=== PATIENT | male | born 1980 | race Caucasian/White ===

== ENCOUNTER 2016-09-23 21:35 | Emergency (ER) | payer OTHER, BC ==
[2016-09-23 22:00] VITALS: TEMP 97.9
[2016-09-23] MEDS ORDERED: ONDANSETRON 4 MG/2 ML VIAL IVP STA (22:28)
[2016-09-23] MEDS ORDERED: MORPHINE SULFATE 4 MG/ML SYRINGE IV STA (22:28)
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
--- NOTE | 2016-09-23 23:50 | CT ---
EXAM: CT Head Without Intravenous Contrast CLINICAL HISTORY: Reason: Pain TECHNIQUE: Axial computed tomography images of the head/brain without intravenous contrast. CTDI is 57.40 mGy and DLP is 1580.20 mGy-cm. This CT exam was performed using one or more of the following dose reduction techniques: automated exposure control, adjustment of the mA and/or kV according to patient size, and/or use of iterative reconstruction technique. COMPARISON: None. FINDINGS: Brain: Enlarged posterior fossa CSF space, measuring up to 1.2 cm, likely representing taj-cisterna magna. Differential includes epidermoid cyst versus arachnoid cyst. No hemorrhage. No significant white matter disease. No edema. Ventricles: Unremarkable. No ventriculomegaly. Bones/joints: Unremarkable. No acute fracture. Soft tissues: Unremarkable. Sinuses: Partial opacification of the bilateral ethmoid air cells, which may represent sinus disease. Mastoid air cells: Unremarkable as visualized. No mastoid effusion. IMPRESSION: 1. No acute cranial hemorrhage or acute transcortical infarct. 2. 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 Differential includes epidermoid cyst versus arachnoid cyst in the posterior fossa. 3. Partial opacification of the bilateral ethmoid air cells, which may represent sinus disease. EXAM: CT Cervical Spine Without Intravenous Contrast CLINICAL HISTORY: Reason: Pain TECHNIQUE: Axial computed tomography images of the cervical spine without intravenous contrast. CTDI is 57.40 mGy and DLP is 496.40 mGy-cm. This CT exam was performed using one or more of the following dose reduction techniques: automated exposure control, adjustment of the mA and/or kV according to patient size, and/or use of iterative reconstruction technique. COMPARISON: None. FINDINGS: Vertebrae: Chronic C2 spinous fracture noted. Discs/spinal canal/neural foramina: No acute findings. No spinal canal stenosis. Soft tissues: Unremarkable. Lung apices: Unremarkable as visualized. IMPRESSION: No acute findings. Chronic C2 spinous fracture. If there is further clinical concern, MRI of the cervical spine is recommended for further evaluation.
--- NOTE | 2016-09-23 23:55 | CT ---
EXAM: CT Maxillofacial Without Intravenous Contrast CLINICAL HISTORY: Reason: Rule out facial fractures TECHNIQUE: Axial computed tomography images of the face without intravenous contrast. CTDI is 30.60 mGy and DLP is 569.10 mGy-cm. This CT exam was performed using one or more of the following dose reduction techniques: automated exposure control, adjustment of the mA and/or kV according to patient size, and/or use of iterative reconstruction technique. COMPARISON: None. FINDINGS: Bones/joints: Hypodensity surrounding the root of the right inferior incisor with associated bony expansion and cortical thinning (as seen on series 6, image 13). No acute fracture. Soft tissues: Unremarkable. Orbits: Unremarkable. Sinuses: Again, mild partial opacification of the bilateral ethmoid air cells, which may represent sinus disease. No air-fluid levels and remaining paranasal sinuses. IMPRESSION: 1. Mild partial opacification of the bilateral ethmoid air cells, which may represent sinus disease. 2. Hypodensity surrounding the root of the right inferior incisor with associated bony expansion and cortical thinning. Correlate with patient's dental history. [employer] 09/23/16 23:38 Call Doctor Regarding Trauma, called Dr. Wong on 09/23 23:37 (-04:00)
[2016-09-24 00:43] VITALS: BP 113/58; PULSE 98; RESP 17
== END 2016-09-24 00:43 | disposition home or self-care (01) ==
LOC: EC 21:35
DX: M54.2 Cervicalgia (principal); J32.2 Chronic ethmoidal sinusitis; K08.9 Disorder of teeth and supporting structures, unspecified; R93.0 Abnormal findings on diagnostic imaging of skull and head, not elsewhere classified; R40.2412 Glasgow coma scale score 13-15, at arrival to emergency department; Z79.899 Other long term (current) drug therapy; Z91.018 Allergy to other foods
CPT/HCPCS: 72125; 70486; 70450; 99283; 96374; 96375; J2270; J2405

== ENCOUNTER 2016-11-13 07:38 | Day surgery (SDC) | payer BC, OTHER ==
[2016-11-05 15:35] VITALS: BMI 27.8
[~2016-11-13 07:38] MED LIST: DEXAMETHASONE SOD PHOSPHATE 10 MG/ML 1 ML VIAL IV ONE; DEXAMETHASONE SOD PHOSPHATE 4 MG/ML 1 ML VIAL IV ONE; FAMOTIDINE 20 MG/2 ML VIAL IV ONE; HYDROmorphone 1 MG/ML 1 ML SYRINGE IVP PRN; LIDOCAINE 1% 20 ML VIAL (10MG/ML) FOR IV START INTRADERMA PRN; MIDAZOLAM 2 MG/2 ML VIAL IV PRN; ONDANSETRON 4 MG/2 ML VIAL IVP ONE; SCOPOLAMINE 1.5MG/72HR PATCH TRANSDERM ONE; ceFAZolin 1,000 MG in DEXTROSE/WATER 1 50ML.BAG IV ONE
[2016-11-13] MEDS: OXYMETAZOLINE 0.05% NASL SPRAY 1 SPRAY BOTTLE NASAL ONE ×5 (07:59→08:20)
[2016-11-13] MEDS: LACTATED RINGERS 1,000 ML IV SCH ×2 (08:11→08:55)
[2016-11-13] MEDS ORDERED: LIDOCAINE 1% INJ 10MG/ML (20 ML MDV) ONE (08:58)
[2016-11-13] MEDS ORDERED: PROPOFOL 10 MG/ML 20 ML VIAL IV ONE (08:58)
[2016-11-13] MEDS ORDERED: SUCCINYLCHOLINE CHLORIDE 100 MG/5 ML SYR IV ONE (08:58)
[2016-11-13] MEDS ORDERED: fentaNYL (PF) 50 MCG/ML 2 ML AMP ONE (08:58)
[2016-11-13] MEDS ORDERED: MIDAZOLAM 2 MG/2 ML VIAL ONE (08:58)
[2016-11-13] MEDS ORDERED: BUPIVACAINE-EPI 0.5%-1:200,000 10 ML VIAL SQ ONE (09:18)
[2016-11-13] MEDS ORDERED: LIDOCAINE 2%-EPI 1:100,000 20 ML VIAL SQ ONE (09:19)
[2016-11-13] MEDS ORDERED: BACITRACIN 500 UNIT/GM OINT 28.4 GM TUBE TOPICAL ONE (09:40)
[2016-11-13 10:17] VITALS: TEMP 97
[2016-11-13 10:32] VITALS: RESP 16
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
[2016-11-13] MEDS ORDERED: LACTATED RINGERS 1,000 ML IV ONE (10:40)
[2016-11-13 11:11] VITALS: BP 121/87; PULSE 72
== END 2016-11-13 12:04 | disposition home or self-care (01) ==
LOC: OR 07:38
PROVIDERS: ATTEND Otolaryngology
DX: J34.2 Deviated nasal septum (principal); J34.3 Hypertrophy of nasal turbinates; Z79.1 Long term (current) use of non-steroidal anti-inflammatories (NSAID); Z79.899 Other long term (current) drug therapy; Z91.09 Other allergy status, other than to drugs and biological substances
CPT/HCPCS: 88300; 30520; 30140; J2250; J1100; J2405; J2001; J3010; J0690; J0330; J2704